=== PATIENT | female | born 1945 | race African-American/Black ===

== ENCOUNTER 2017-07-28 00:36 | Emergency (ER) | payer OTHER ==
[~2017-07-28] VITALS: Ht 162.6 cm; Wt 54.4 kg
[2017-07-28] MEDS ORDERED: ASPirin 81 mg TAB PO ONE (01:45)
[2017-07-28] MEDS ORDERED: ONDANSETRON HCL 4 MG/2 ML VIAL IV ONE (01:45)
[2017-07-28] MEDS ORDERED: MORPHINE SULF INJ 2 MG/ML SYRINGE 1ML IV PRN (01:45)
[2017-07-28] MEDS ORDERED: ATOR20TA PO (02:35)
[2017-07-28] MEDS ORDERED: B-COCAP34 OR (02:35)
[2017-07-28] MEDS ORDERED: GINK500C PO (02:36)
[2017-07-28] MEDS ORDERED: MEMA28CA OR (02:37)
[2017-07-28] MEDS ORDERED: LETR2.5T PO (02:38)
[2017-07-28] MEDS ORDERED: CHOL200021 PO (02:38)
[2017-07-28] MEDS ORDERED: LEVO75TA50 PO (02:40)
[2017-07-28] MEDS ORDERED: DONE10TA37 PO (02:42)
[2017-07-28 02:43] LABS: Basophils # (auto) 0 uL; Basophils % (auto) 0.3 % (0.0-2.0); Eosinophils # (auto) 0 uL; Eosinophils % (auto) 0.1 % (0.0-7.0); Hematocrit 40.3 % (36.0-46.0); Hemoglobin 13.8 g/dL (12.2-16.2); Lymphocytes # (auto) 0.4 uL; Lymphocytes % (auto) 5.7 % (10.0-50.0); Mean Corpuscular Hgb Conc. 34.3 g/dL (32.0-36.0); Mean Corpuscular Volume 81.7 fL (80.0-100.0); Mean Platelet Volume 8.2 fL (6.9-10.8); Monocytes # (auto) 0.2 uL; Monocytes % (auto) 2.5 % (0.0-12.0); Neutrophils # (auto) 6.4 uL; Neutrophils % (auto) 91.4 % (37.0-80.0); Platelet Count (auto) 335 10^3/uL (140-450)
[2017-07-28] MEDS ORDERED: METO25TA62 PO (02:43)
[2017-07-28 02:50] LABS: BUN/Creatinine Ratio 16.3
[2017-07-28 02:51] LABS: Albumin 2.4 g/dL (3.4-5.0); Calcium 8.3 mg/dL (8.5-10.1)
[2017-07-28 02:57] LABS: INR 1.19 (0.9-1.15); Partial Thromboplastin Time 24.7 sec (22.64-33.71)
[2017-07-28 03:01] LABS: Bilirubin, Total 0.9 mg/dL (0.2-1.0); Total Protein 7.7 g/dL (6.4-8.2)
[2017-07-28 03:20] LABS: Potassium 2.6 mmol/L (3.5-5.1)
[2017-07-28] MEDS ORDERED: SOD CHL 0.9%/ KCL 20MEQ 1,000 ML IV ONE (03:45)
[2017-07-28] MEDS ORDERED: POTASSIUM CHL 10% (20 MEQ/15ML) 15ml ORAL SOLN PO ONE (03:45)
[2017-07-28 04:12] LABS: B-Type Natriuretic Peptide 37.7 pg/mL (0-100); Temperature: 22.4 C (20.0-25.0)
[2017-07-28] MEDS ORDERED: NITROGLYCERIN 0.2MG/HR TOPICAL PATCH TD ONE (05:15)
[2017-07-28] MEDS ORDERED: METOPROLOL SUCCINATE XL 50 MG TAB PO ONE (06:45)
[2017-07-28 09:07] VITALS: BP 131/88
== END 2017-07-28 09:09 | disposition home or self-care (01) ==
LOC: ER 00:36 → EDBD 00:36 → ER 09:09
DX: I20.9 Angina pectoris, unspecified (principal); E87.6 Hypokalemia; I10 Essential (primary) hypertension; M19.90 Unspecified osteoarthritis, unspecified site; Z85.9 Personal history of malignant neoplasm, unspecified
CPT/HCPCS: 36415; 71010; 80053; 83735; 83880; 84443; 84484; 85025; 85610; 85730; 93005; 94761; 96365; 96366; 96375; 99285; J2270; J2405

== ENCOUNTER 2018-04-01 16:06 | Emergency (ER) | payer OTHER ==
[~2018-04-01] VITALS: Ht 172.7 cm; Wt 56.7 kg
[~2018-04-01 16:06] MED LIST: ATOR20TA PO; B-COCAP34 OR; CHOL200021 PO; DONE10TA40 PO; GINK500C PO; LETR2.5T PO; LEVO75TA50 PO; MEMA28CA OR; METO25TA62 PO
[2018-04-01 16:29] VITALS: BP 155/96
[2018-04-01 17:01] LABS: Basophils # (auto) 0.1 uL; Basophils % (auto) 0.5 % (0.0-2.0); Eosinophils # (auto) 0.1 uL; Hemoglobin 12.4 g/dL (12.2-16.2); Monocytes # (auto) 0.5 uL; Nucleated Red Blood Cells % 0.1 %
[2018-04-01 17:02] LABS: Hematocrit 36.5 % (36.0-46.0); Lymphocytes % (auto) 8.9 % (10.0-50.0); Mean Corpuscular Hemoglobin 28.8 pg (28.0-32.0); Mean Corpuscular Hgb Conc. 33.9 g/dL (32.0-36.0); Mean Corpuscular Volume 84.8 fL (80.0-100.0); Monocytes % (auto) 4.7 % (0.0-12.0); Neutrophils # (auto) 9.3 uL; Neutrophils % (auto) 84.9 % (37.0-80.0); Platelet Count (auto) 508 10^3/uL (140-450); Red Cell Distribution Width 15.1 % (11.8-14.3)
[2018-04-01 17:13] LABS: Alanine Aminotransferase 11 U/L (13-56); Albumin 2.2 g/dL (3.4-5.0); Anion Gap 10 (5-15); Aspartate Aminotransferase 20 U/L (15-37); BUN/Creatinine Ratio 9.8; Blood Urea Nitrogen 5 mg/dL (7-18); Calcium 8.1 mg/dL (8.5-10.1); Carbon Dioxide 26 mmol/L (21-32); Chloride 102 mmol/L (98-107); GFR African American 152 mL/min; GFR Non-African American 125 mL/min; Glucose 88 mg/dL (74-106); Magnesium 1.8 mg/dL (1.6-2.6); Sodium 138 mmol/L (136-145)
[2018-04-01 17:18] LABS: Alkaline Phosphatase 163 U/L (45-117); Bilirubin, Total 0.5 mg/dL (0.2-1.0)
== END 2018-04-01 20:20 | disposition left against medical advice (07) ==
LOC: EDBD 16:06 → ER 16:19
DX: R07.9 Chest pain, unspecified (principal); Z53.21 Procedure and treatment not carried out due to patient leaving prior to being seen by health care provider
CPT/HCPCS: 36415; 80053; 83735; 84484; 85025; 93005